=== PATIENT | male | born 1930 | race Caucasian/White ===

== ENCOUNTER 2018-09-21 11:11 | Emergency (ER) | payer MEDICARE, OTHER ==
--- NOTE | 2018-09-21 12:17 | EDM.PDOC ---
ED HPI GENERAL MEDICAL PROBLEM - General Chief Complaint: Genitourinary Problem Stated Complaint: GENERAL Time Seen by Provider: 09/21/18 12:17 Source of Information: Reports: Patient, Old Records, RN, RN Notes Reviewed History Limitations: Reports: No Limitations - History of Present Illness INITIAL COMMENTS - FREE TEXT/NARRATIVE: Pt arrives to ER from assisted living by facility van with report that he has had blood in his antonio catheter bag for 3 or 4 days. Pt states he was given an antibiotic yesterday and has taken 2 doses, but he doesn't recall the name of the medication and his pharmacy is closed today. Pt denies pain, fever, chills, flank or abdominal pain, rectal bleeding or urinary retention. Onset: Gradual Duration: Day(s): (3-4) Location: Reports: Other (antonio catheter/ problem) Quality: Reports: Other (denies pain) Severity: Moderate Improves with: Reports: None Worsens with: Reports: None Associated Symptoms: Reports: No Other Symptoms - Related Data Allergies Allergy/AdvReac Type Severity Reaction Status Date / Time No Known Allergies Allergy Verified 09/21/18 11:53 Home Meds: Home Meds Clopidogrel Bisulfate [Clopidogrel] 75 mg PO DAILY 10/29/14 [History] Pantoprazole [ProTONIX] 40 mg PO DAILY 10/29/14 [History] Ascorbic Acid [Vitamin C] 500 mg PO DAILY 08/15/15 [History] Aspirin [Low Dose Aspirin EC] 81 mg PO DAILY 08/15/15 [History] Bisacodyl [Dulcolax] 10 mg PO BID PRN 08/15/15 [History] Magnesium Hydroxide [Milk of Magnesia] 400 mg PO DAILY PRN 08/15/15 [History] Multivit-Min/FA/Lycopene/Lut [Centrum Silver Tablet] 1 tab PO DAILY 08/15/15 [ History] Sotalol HCl [Betapace] 120 mg PO BID 08/15/15 [History] Tamsulosin [Flomax] 0.4 mg PO BEDTIME 08/15/15 [History] Escitalopram [Lexapro] 20 mg PO DAILY PRN 02/15/16 [History] ALPRAZolam [Xanax] 1 mg PO BID PRN 02/16/16 [History] Finasteride [Proscar] 1 tab PO DAILY 02/16/16 [History] Glucosamine/D3/Boswellia Tomasa [Glucosamine Complex Tablet] 02/16/16 [History] L.acidoph,Paracasei, B.lactis [Probiotic] 02/16/16 [History] Lecithin, Soy [Lecithin] 02/16/16 [History] Lycopene 10 mg PO DAILY 02/16/16 [History] Mometasone Furoate [Nasonex] 2 sprays NS DAILY 02/16/16 [History] Nystatin [Nystatin Crm] 1 applic TOP BID 02/16/16 [History] [place]-3/DHA/Epa/Fish Oil [Fish Oil [place]-3 EC 1,200 mg] 1 cap PO DAILY 02/16/16 [History] Vitamin B Complex 1 tab PO DAILY 02/16/16 [History] Ciprofloxacin [Ciprofloxacin HCl] 250 mg PO BID #14 tablet 02/21/16 [Rx] Past Medical History HEENT History: Reports: Sinusitis, Other (See Below) Other HEENT History: recurrent sinus infections, nasal sinus cyst Cardiovascular History: Reports: Afib, Hypertension, Other (See Below) Other Cardiovascular History: hx atrial cardioversion Respiratory History: Reports: None Gastrointestinal History: Reports: Chronic Constipation, GERD Genitourinary History: Reports: BPH, UTI, Recurrent, Other (See Below) (chronic indwelling antonio catheter) Musculoskeletal History: Reports: Other (See Below) Other Musculoskeletal History: toes deformed sideways bilat, started few years ago. Psychiatric History: Reports: Anxiety - Infectious Disease History Infectious Disease History: Reports: Chicken Pox, Measles - Past Surgical History Respiratory Surgical History: Reports: None Male Surgical History: Reports: Prostate Biopsy, Other (See Below) Social & Family History - Family History Cardiac: Reports: Hypertension, [place] Other Cardiac Family History: father of heart issues Respiratory: Reports: None GI: Reports: None : Reports: None OBGYN: Reports: None Musculoskeletal: Reports: None Neurological: Reports: CVA Other Neurological Family History: brother Psychiatric: Reports: Anxiety Other Psychiatric Family History: mother Endocrine/Metabolic: Reports: Diabetes, type II Other Endocrine/Metabolic Family History: sister is boarderline Hematologic: Reports: None Immunologic: Reports: None Dermatologic: Reports: None Oncologic: Reports: None - Caffeine Use Caffeine Use: Reports: Tea - Living Situation & Occupation Living situation: Reports: Single, Alone, Assisted Living Occupation: Retired ED ROS GENERAL - Review of Systems Review Of Systems: ROS reveals no pertinent complaints other than HPI. ED EXAM, RENAL/ - Physical Exam Exam: See Below Exam Limited By: No Limitations General Appearance: Alert, WD/WN, No Apparent Distress Nose: Normal Inspection Throat/Mouth: Normal Inspection, Normal Voice, No Airway Compromise Head: Atraumatic, Normocephalic Neck: Normal Inspection Respiratory/Chest: No Respiratory Distress, Lungs Clear Cardiovascular: Regular Rate, Rhythm GI/Abdominal: Normal Bowel Sounds, Soft, Non-Tender, No Distention (Male) Exam: Other (chronic indwelling antonio catheter with no leakage, blood urine in antonio bag) Rectal (Males) Exam: Deferred Back Exam: Normal Inspection. No: CVA Tenderness (L), CVA Tenderness (R) Extremities: Normal Inspection Neurological: Alert, Oriented, No Motor/Sensory Deficits Psychiatric: Normal Affect, Normal Mood Skin Exam: Warm, Dry, Intact, Normal Color, No Rash Course - Vital Signs Last Recorded V/S: Last Vital Signs Temp 36.3 C 09/21/18 11:54 Pulse 60 09/21/18 11:54 Resp 16 09/21/18 11:54 BP 98/53 L 09/21/18 11:54 Pulse Ox 98 09/21/18 11:54 - Orders/Labs/Meds Orders: Active Orders 24 hr Category Date Time Status CULTURE URINE [RM] Stat Lab 09/21/18 12:25 Received Labs: Laboratory Tests 09/21/18 Range/Units 12:25 Urine Color Red (YELLOW) Urine Appearance Turbid (CLEAR) Urine pH 7.0 (5.0-9.0) Ur Specific [place] 1.015 (1.005-1.030) Urine Protein >=300 H (NEGATIVE) Urine Glucose (UA) Negative (NEGATIVE) Urine Ketones 15 H (NEGATIVE) Urine Occult Blood Large H (NEGATIVE) Urine Nitrite Positive H (NEGATIVE) Urine Bilirubin Large H (NEGATIVE) Urine Urobilinogen 2.0 H (0.2-1.0) mg/dL Ur Leukocyte Esterase Large H (NEGATIVE) Urine RBC Packed H /HPF Urine WBC Packed H (0-5/HPF) /HPF Ur Epithelial Cells Moderate H (NOT SEEN) /HPF Amorphous Sediment Moderate (NOT SEEN) /HPF Urine Bacteria Few (0-FEW/HPF) /HPF Urine Mucus Few H (NOT SEEN) /LPF Urine Culture: pending - Re-Assessments/Exams Free Text/Narrative Re-Assessment/Exam: 09/21/18 13:04 Pt's past urine cultures have been sensitive to Cipro, but with other multi- drug resistance. Departure - Departure Time of Disposition: 13:05 Disposition: Home, Self-Care 01 Condition: Good Clinical Impression: Gross hematuria UTI (urinary tract infection) due to urinary indwelling Antonio catheter Qualifiers: Indwelling urinary catheter type: indwelling urethral catheter Encounter type: initial encounter Qualified Code(s): T83.511A - Infection and inflammatory reaction due to indwelling urethral catheter, initial encounter; N39.0 - Urinary tract infection, site not specified - Discharge Information *PRESCRIPTION DRUG MONITORING PROGRAM REVIEWED*: No *COPY OF PRESCRIPTION DRUG MONITORING REPORT IN PATIENT [place]: No Instructions: Urinary Tract Infection, Adult, Catheter-Associated Urinary Tract Infection FAQs - MCGRAW, Hematuria, Adult Forms: ED Department Discharge Additional Instructions: Rx: Cipro 500mg *Call back to the ER once you determine the name of the antibiotic you are already taking, and we will then tell you whether to take the Cipro or not. Follow up in clinic in 2 to 3 days for recheck of your urine. - My Orders Last 24 Hours: My Active Orders 09/21/18 12:25 CULTURE URINE [RM] Stat - Assessment/Plan Last 24 Hours: My Active Orders 09/21/18 12:25 CULTURE URINE [RM] Stat
[2018-09-21 12:25] VITALS: BP 98/53
== END 2018-09-21 13:30 | disposition home or self-care (01) ==
LOC: DL.ED 11:11
DX: T83.511A Infection and inflammatory reaction due to indwelling urethral catheter, initial encounter (principal); N39.0 Urinary tract infection, site not specified; I48.91 Unspecified atrial fibrillation; I10 Essential (primary) hypertension; F41.9 Anxiety disorder, unspecified; Z79.899 Other long term (current) drug therapy
CPT/HCPCS: 81001; 87086; 87088; 87186; 99283

== ENCOUNTER 2019-01-20 09:05 | Inpatient (IN) | payer MEDICARE ==
--- NOTE | 2019-01-20 09:10 | EDM.PDOC ---
ED HPI GENERAL MEDICAL PROBLEM - General Chief Complaint: General Stated Complaint: AMBULANCE Time Seen by Provider: 01/20/19 09:05 Source of Information: Reports: Patient, EMS, Old Records, RN, RN Notes Reviewed History Limitations: Reports: No Limitations - History of Present Illness INITIAL COMMENTS - FREE TEXT/NARRATIVE: Pt arrives from assisted living facility by ambulance with report falling at. This is his second fall this in past 2-3 days. Reports hitting his left elbow, and has a small skin but denies any other areas of injury or pain. Nurse from the assisted living facility reports pt has difficulty ambulating due to weakness, and even with walker is very unsteady. Pt has frequent UTI with long chronic Antonio cath. He was started on Macrobid last Sunday01/17/19. Antonio cath. last changed on 01/10/19. Onset: Today Duration: Chronic, Getting Worse, Recurring Location: Reports: Generalized Quality: Reports: Ache Severity: Mild Improves with: Reports: None Worsens with: Reports: None Associated Symptoms: Reports: No Other Symptoms - Related Data Allergies Allergy/AdvReac Type Severity Reaction Status Date / Time No Known Allergies Allergy Verified 09/21/18 11:53 Home Meds: Home Meds ALPRAZolam [Xanax] 1 mg PO BID PRN 09/21/18 [History] Albuterol Sulfate [Proair Hfa] 2 puff INH DAILY 09/21/18 [History] Ascorbic Acid [C-1000] 500 mg PO DAILY 09/21/18 [History] Aspirin 81 mg PO DAILY 09/21/18 [History] Bisacodyl 5 mg PO DAILY 09/21/18 [History] Clopidogrel [Plavix] 75 mg PO DAILY 09/21/18 [History] Finasteride 5 mg PO DAILY 09/21/18 [History] Fish Oil/[place]-3 Fatty Acids [Fish Oil] 1,000 mg PO DAILY 09/21/18 [History] Gabapentin [Neurontin] 100 mg PO BEDTIME 09/21/18 [History] Gluc HCl/Csa/Saima Hy/Hyalur Ac [Glucosamine Chondroitin] 1 cap PO DAILY [History] Lycopene 10 mg PO DAILY 09/21/18 [History] Magnesium Hydroxide [Milk of Magnesia] 400 mg PO DAILY PRN 09/21/18 [History] Multivitamin [Multivitamins] 1 cap PO DAILY 09/21/18 [History] Pantoprazole Sodium [Protonix] 40 mg PO DAILY 09/21/18 [History] Tamsulosin [Flomax] 0.4 mg PO DAILY 09/21/18 [History] Vitamin B Complex 1 cap PO DAILY 09/21/18 [History] Past Medical History HEENT History: Reports: Sinusitis, Other (See Below) Other HEENT History: recurrent sinus infections, nasal sinus cyst Cardiovascular History: Reports: Afib, Hypertension, Other (See Below) Other Cardiovascular History: hx atrial cardioversion Respiratory History: Reports: None Gastrointestinal History: Reports: Chronic Constipation, GERD Genitourinary History: Reports: BPH, UTI, Recurrent, Other (See Below) (chronic indwelling antonio catheter) Musculoskeletal History: Reports: Other (See Below) Other Musculoskeletal History: toes deformed sideways bilat, started few years ago. Psychiatric History: Reports: Anxiety - Infectious Disease History Infectious Disease History: Reports: Chicken Pox, Measles - Past Surgical History Respiratory Surgical History: Reports: None Male Surgical History: Reports: Prostate Biopsy, Other (See Below) Social & Family History - Family History Family Medical History: Noncontributory Cardiac: Reports: Hypertension, [place] Other Cardiac Family History: father of heart issues Respiratory: Reports: None GI: Reports: None : Reports: None OBGYN: Reports: None Musculoskeletal: Reports: None Neurological: Reports: CVA Other Neurological Family History: brother Psychiatric: Reports: Anxiety Other Psychiatric Family History: mother Endocrine/Metabolic: Reports: Diabetes, type II Other Endocrine/Metabolic Family History: sister is boarderline Hematologic: Reports: None Immunologic: Reports: None Dermatologic: Reports: None Oncologic: Reports: None - Caffeine Use Caffeine Use: Reports: Tea - Living Situation & Occupation Living situation: Reports: Single, Alone, Assisted Living Occupation: Retired ED ROS GENERAL - Review of Systems Review Of Systems: ROS reveals no pertinent complaints other than HPI. ED EXAM, GENERAL - Physical Exam Exam: See Below Exam Limited By: No Limitations General Appearance: Alert, No Apparent Distress, Other (Frail elderly male) Eye Exam: Bilateral Eye: Normal Inspection Nose: Normal Inspection Throat/Mouth: Normal Inspection, Normal Voice, No Airway Compromise Head: Atraumatic, Normocephalic Neck: Normal Inspection, Supple, Non-Tender, Full Range of Motion Respiratory/Chest: No Respiratory Distress, No Accessory Muscle Use, Chest Non- Tender, Decreased Breath Sounds. No: Crackles, Rales, Rhonchi, Wheezing, Stridor Cardiovascular: Irregularly Irregular GI/Abdominal: Normal Bowel Sounds, Soft, Non-Tender, No Distention Back Exam: Normal Inspection Extremities: Normal Range of Motion, Normal Capillary Refill, Other (Small superficial skin tear to left elbow, with full ROM, no deformity.) Neurological: Alert, Oriented (to person and place), No Motor/Sensory Deficits, Other (Generalized weakness) Psychiatric: Depressed Mood, Flat Affect Skin Exam: Warm, Dry EKG INTERPRETATION EKG Date: 01/20/19 Time: 09:22 Rhythm: A-Fib Rate (Beats/Min): 54 Lejunior: Normal P-Wave: Absent QRS: Other (LAFB,) ST-T: Normal QT: Normal Comparison: No Change Course - Vital Signs Last Recorded V/S: Last Vital Signs Temp 98.3 F 01/20/19 09:05 Pulse 75 01/20/19 09:05 Resp 16 01/20/19 09:05 BP 139/64 01/20/19 09:05 Pulse Ox 97 01/20/19 09:05 - Orders/Labs/Meds Orders: Active Orders 24 hr Category Date Time Status Blood Glucose Check, Bedside [RC] ONETIME Care 01/20/19 09:11 Active EKG 12 Lead [EKG Documentation Completion] [RC] STAT Care 01/20/19 09:10 Active Peripheral IV Care [RC] . DIRECTED Care 01/20/19 09:11 Active CULTURE URINE [RM] Stat Lab 01/20/19 09:16 Received Levofloxacin/Dextrose 5%-Water [Levaquin in D5W 500 MG/ Med 01/20/19 09:57 Ordered 100 ML] 500 mg Premix Bag 1 bag IV ONETIME Sodium Chloride 0.9% [Saline Flush] Med 01/20/19 09:10 Active 10 ml FLUSH ASDIRECTED PRN Peripheral IV Insertion Adult [OM.PC] Stat Oth 01/20/19 09:10 Ordered Medication Orders Levofloxacin/Dextrose 500 mg/ (Premix) 100 mls @ 100 mls/hr IV ONETIME ONE Stop: 01/20/19 10:56 Sodium Chloride (Saline Flush) 10 ml FLUSH ASDIRECTED PRN PRN Reason: Keep Vein Open Labs: Laboratory Tests 01/20/19 01/20/19 01/20/19 Range/Units 09:16 09:20 09:20 WBC 7.5 (5.0-10.0) 10^3/uL RBC 3.26 L (4.6-6.2) 10^6/uL Hgb 10.9 L (14.0-18.0) g/dL Hct 32.7 L (40.0-54.0) % MCV 100.3 H (80-100) fL MCH 33.4 (27.0-34.0) pg MCHC 33.3 (33.0-35.0) g/dL Plt Count 229 (150-450) 10^3/uL Neut % (Auto) 70.2 (42.2-75.2) % Lymph % (Auto) 18.3 L (20.5-50.1) % [place] % (Auto) 8.7 H (2-8) % Eos % (Auto) 2.5 (1.0-3.0) % Baso % (Auto) 0.3 (0.0-1.0) % Sodium 133 L (135-145) mmol/L Potassium 4.2 (3.6-5.0) mmol/L Chloride 96 L (101-111) mmol/L Carbon Dioxide 28.0 (21.0-31.0) mmol/L Anion Gap 13.2 BUN 17 (7-18) mg/dL Creatinine 0.6 (0.6-1.3) mg/dL Est Cr Clr Drug Dosing TNP Estimated GFR (MDRD) > 60 BUN/Creatinine Ratio 28.33 Glucose 97 (74-105) mg/dL POC Glucose (83-110) mg/dl Calcium 8.8 (8.4-10.2) mg/dl Total Bilirubin 1.1 H (0.2-1.0) mg/dL AST 29 (10-42) IU/L ALT 26 (10-60) IU/L Alkaline Phosphatase 158 H (42-121) IU/L Total Protein 7.6 (6.7-8.2) g/dl Albumin 3.5 (3.2-5.5) g/dl Globulin 4.1 Albumin/Globulin Ratio 0.85 Urine Color Red (YELLOW) Urine Appearance Cloudy (CLEAR) Urine pH 8.5 (5.0-9.0) Ur Specific [place] 1.015 (1.005-1.030) Urine Protein 30 H (NEGATIVE) Urine Glucose (UA) Negative (NEGATIVE) Urine Ketones Negative (NEGATIVE) Urine Occult Blood Large H (NEGATIVE) Urine Nitrite Positive H (NEGATIVE) Urine Bilirubin Small H (NEGATIVE) Urine Urobilinogen 2.0 H (0.2-1.0) mg/dL Ur Leukocyte Esterase Large H (NEGATIVE) Urine RBC >100 H /HPF Urine WBC 10-20 H (0-5/HPF) /HPF Ur Epithelial Cells Rare (NOT SEEN) /HPF Amorphous Sediment Few (NOT SEEN) /HPF Urine Bacteria Moderate H (0-FEW/HPF) /HPF 01/20/19 Range/Units 09:21 WBC (5.0-10.0) 10^3/uL RBC (4.6-6.2) 10^6/uL Hgb (14.0-18.0) g/dL Hct (40.0-54.0) % MCV (80-100) fL MCH (27.0-34.0) pg MCHC (33.0-35.0) g/dL Plt Count (150-450) 10^3/uL Neut % (Auto) (42.2-75.2) % Lymph % (Auto) (20.5-50.1) % [place] % (Auto) (2-8) % Eos % (Auto) (1.0-3.0) % Baso % (Auto) (0.0-1.0) % Sodium (135-145) mmol/L Potassium (3.6-5.0) mmol/L Chloride (101-111) mmol/L Carbon Dioxide (21.0-31.0) mmol/L Anion Gap BUN (7-18) mg/dL Creatinine (0.6-1.3) mg/dL Est Cr Clr Drug Dosing Estimated GFR (MDRD) BUN/Creatinine Ratio Glucose (74-105) mg/dL POC Glucose 95 (83-110) mg/dl Calcium (8.4-10.2) mg/dl Total Bilirubin (0.2-1.0) mg/dL AST (10-42) IU/L ALT (10-60) IU/L Alkaline Phosphatase (42-121) IU/L Total Protein (6.7-8.2) g/dl Albumin (3.2-5.5) g/dl Globulin Albumin/Globulin Ratio Urine Color (YELLOW) Urine Appearance (CLEAR) Urine pH (5.0-9.0) Ur Specific [place] (1.005-1.030) Urine Protein (NEGATIVE) Urine Glucose (UA) (NEGATIVE) Urine Ketones (NEGATIVE) Urine Occult Blood (NEGATIVE) Urine Nitrite (NEGATIVE) Urine Bilirubin (NEGATIVE) Urine Urobilinogen (0.2-1.0) mg/dL Ur Leukocyte Esterase (NEGATIVE) Urine RBC /HPF Urine WBC (0-5/HPF) /HPF Ur Epithelial Cells (NOT SEEN) /HPF Amorphous Sediment (NOT SEEN) /HPF Urine Bacteria (0-FEW/HPF) /HPF Meds: Medications Generic Name Dose Route Start Last Admin Trade Name Freq PRN Reason Stop Dose Admin Levofloxacin/Dextrose 500 mg/ 100 mls @ 100 mls/hr 01/20/19 09:57 Premix IV 01/20/19 10:56 ONETIME ONE Sodium Chloride 10 ml 01/20/19 09:10 Saline Flush FLUSH ASDIRECTED PRN Keep Vein Open - Radiology Interpretation Free Text/Narrative:: [facility] Final Radiology Report Call: [phone] assistance Online chat: [email or web address] Name: MIGUEL MURGUIA Age: 89Years M Date: 01/20/2019 SSN: -- : [id number] Study: XR CHEST 1 VIEW FRONTAL Requesting Physician: DUKE OBRIEN Images: 1 Addl Studies: Provided Clinical History: Contrast: Contrast Medium: Contrast Amount: Contrast Method: CONFIDENTIALITY STATEMENT This report is intended only for use by the referring physician, and only in accordance with law. If you received this in error, call [phone]. Page 1 of 1 PROCEDURE INFORMATION: Exam: XR Chest, 1 View Exam date and time: 01/20/2019 9:38 AM Clinical history: 89 years old, male; Other: Shortness of breath, ground level fall TECHNIQUE: Imaging protocol: XR of the chest Views: 1 view. COMPARISON: CR Chest 2V 08/20/2015 3:19 PM FINDINGS: Lungs: Unremarkable. No consolidation. Pleural space: Unremarkable. No pleural effusion. No pneumothorax. Heart/Mediastinum: The heart is enlarged. Bones/joints: Unremarkable. IMPRESSION: No acute findings. Thank you for allowing us to participate in the care of your patient. Dictated and Authenticated by: Krishna White MD 01/20/2019 9:51 AM Central Time ([place] & [place]) Departure - Departure Time of Disposition: 10:10 (admitted to Dr. Salas) Disposition: Admitted As Inpatient 68 Condition: Fair Clinical Impression: Generalized weakness, Fall from ground level, Frequent falls UTI (urinary tract infection) due to urinary indwelling Antonio catheter Qualifiers: Indwelling urinary catheter type: indwelling urethral catheter Encounter type: initial encounter Qualified Code(s): T83.511A - Infection and inflammatory reaction due to indwelling urethral catheter, initial encounter; N39.0 - Urinary tract infection, site not specified Skin tear of elbow without complication Qualifiers: Encounter type: initial encounter Laterality: left Qualified Code(s): S51.012A - Laceration without foreign body of left elbow, initial encounter - Discharge Information *PRESCRIPTION DRUG MONITORING PROGRAM REVIEWED*: No *COPY OF PRESCRIPTION DRUG MONITORING REPORT IN PATIENT [place]: No Forms: ED Department Discharge - My Orders Last 24 Hours: My Active Orders 01/20/19 09:10 EKG 12 Lead [EKG Documentation Completion] [RC] STAT Sodium Chloride 0.9% [Saline Flush] 10 ml FLUSH ASDIRECTED PRN Peripheral IV Insertion Adult [OM.PC] Stat 01/20/19 09:11 Blood Glucose Check, Bedside [RC] ONETIME Peripheral IV Care [RC] . DIRECTED 01/20/19 09:16 CULTURE URINE [RM] Stat 01/20/19 09:57 Levofloxacin/Dextrose 5%-Water [Levaquin in D5W 500 MG/100 ML] 500 mg Premix Bag 1 bag IV ONETIME - Assessment/Plan Last 24 Hours: My Active Orders 01/20/19 09:10 EKG 12 Lead [EKG Documentation Completion] [RC] STAT Sodium Chloride 0.9% [Saline Flush] 10 ml FLUSH ASDIRECTED PRN Peripheral IV Insertion Adult [OM.PC] Stat 01/20/19 09:11 Blood Glucose Check, Bedside [RC] ONETIME Peripheral IV Care [RC] . DIRECTED 01/20/19 09:16 CULTURE URINE [RM] Stat 01/20/19 09:57 Levofloxacin/Dextrose 5%-Water [Levaquin in D5W 500 MG/100 ML] 500 mg Premix Bag 1 bag IV ONETIME
[2019-01-20 09:45] LABS: ANION GAP 13.2; CHLORIDE,CL 96 mmol/L (101-111); SODIUM,NA 133 mmol/L (135-145)
[2019-01-20] MEDS ORDERED: Levofloxacin/Dextrose 5%-Water 500 MG in Premix Bag 1 BAG IV ONE (09:57)
[2019-01-20] MEDS: Sodium Chloride 0.9% 10 ML Syringe FLUSH PRN (10:19)
[2019-01-20] MEDS ORDERED: Polyethylene Glycol 3350 Powder 17 GM Packet PO PRN (12:07)
[2019-01-20] MEDS ORDERED: Docusate Sodium 100 MG Cap PO PRN (12:07)
[2019-01-20] MEDS ORDERED: Magnesium Hydroxide 400 MG/5 ML Susp 30 ML Cup PO PRN ×2 (12:07→12:11)
[2019-01-20] MEDS ORDERED: Ondansetron 4 MG Tab.DIS PO PRN (12:07)
[2019-01-20] MEDS ORDERED: Bisacodyl 5 MG Tab PO PRN (12:11)
[2019-01-20] MEDS ORDERED: ALPRAZolam 0.5 MG Tab PO PRN (12:11)
[2019-01-20] MEDS ORDERED: Albuterol 6.7 GM Inhaler INH PRN (12:11)
--- NOTE | 2019-01-20 13:14 | HP ---
CHIEF COMPLAINT: Fall at the assisted living facility. HISTORY OF PRESENTING ILLNESS: Mr. Tavo Lopez is an 89-year-old male with a medical history significant for chronic indwelling Matias catheter secondary to benign prostatic hypertrophy, history of gastric reflux disease, history of anxiety, and atrial fibrillation, presented to the ER after having a fall at the assisted living facility. At this time, the patient says that around 7 a.m. was getting ready to cook and then he had a fall. He complains that his legs gave away and fell down on the hardwood floor. He fell on his left side and hit his left elbow. During the fall, he denies any hitting of the head. Denies any loss of consciousness. He was unable to get up by his own, so he alarmed the [facility]. The staff at assisted living facility came and helped him up. Two people could not get him up, so they needed more help. At this time, the patient denies any complaints of chest pain. No shortness of breath. No abdominal pain. No complaints of nausea or vomiting in the last few days. No complaints of diarrhea in the last few days. No complaints of fevers or chills in the last few days. He denies any complaints of pelvic pain. No knee pain. No ankle pain at this time. The patient denied any history of chest pains on exertion. No history of dyspnea on exertion. He usually uses a walker to ambulate around. He denies any hematemesis, hematochezia, or melenic stools. Normal bowel and bladder habits otherwise. REVIEW OF SYSTEMS: A complete review of system including skin, ear, nose, and throat, cardiovascular system, respiratory system, gastrointestinal system, genitourinary system, hematology, oncology, neurology, allergy, immunology, constitutional were all evaluated and were negative except for the above-said notes. PAST MEDICAL HISTORY: Significant for: 1. Gastroesophageal reflux disease. 2. Benign prostatic hypertrophy. 3. Chronic indwelling Matias catheter. 4. Recurrent urinary tract infection. 5. Recurrent sinus infection. 6. Atrial fibrillation. 7. Anxiety. PAST SURGICAL HISTORY: History of cardioversion and appendicectomy. FAMILY HISTORY: Significant for cerebrovascular accident in his brother. SOCIAL HISTORY: The patient denies any history of smoking tobacco. No history of alcohol intake. ALLERGIES: No known drug allergies. HOME MEDICATIONS: 1. Flomax 0.4 mg daily. 2. Protonix 40 mg daily. 3. Multivitamin 1 tablet daily. 4. Magnesium hydroxide 400 mg daily as needed. 5. Glucosamine 1 capsule daily. 6. Neurontin 100 mg at bedtime. 7. Fish oil 1000 mg daily. 8. Finasteride 5 mg daily. 9. Plavix 75 mg daily. 10.Bisacodyl 5 mg daily. 11.Aspirin 81 mg daily. 12.Ascorbic acid 500 mg daily. 13.Xanax 1 mg twice a day as needed. PHYSICAL EXAMINATION: Vital Signs: Temperature of 98.3, pulse of 75, blood pressure of 139/64, respiratory rate 16, and saturating at 97% on room air. General Appearance: Patient is well oriented to time, place, and person. Follows commands spontaneously. Cardiovascular System: S1, S2 heard with normal intensity. Regular heart rate. Respiratory System: Clear to auscultation bilaterally. Mild crepitations at the bases, mostly on the left side. No wheeze. Abdomen: Soft. Bowel sounds positive. Nontender. No rigidity. Extremities: No edema, bilateral lower extremities. Noted to have hammertoes and deviated toes on bilateral foot. Calluses noted on bilateral foot base of the second toe. Neurologic: No gross focal neurological deficit. LABORATORY DATA: WBC 7.5, hemoglobin 10.9, hematocrit 32.7, platelet count 229. Sodium 133, potassium 4.2, chloride 96, bicarb 28, BUN 17, creatinine 0.6, glucose 97, total bilirubin 1.1, AST 29, ALT 26. Urinalysis positive for nitrites, large leukocytes, greater than 100 rbc's, 10 to 20 wbc's, rare epithelial cells, moderate urine bacteria. ASSESSMENT: 1. Urinary tract infection with history of Matias catheter in place. 2. Gastroesophageal reflux disease. 3. Frequent falls. 4. Generalized debility. 5. Anxiety. PLAN: 1. Urinary tract infection, this is most probably from his indwelling Matias catheter. He changes his Matias catheter once a month. We will try to change the Matias catheter now. Unsure if this is a benign process versus an active infection. He was seen in the clinic a few days back and was prescribed oral Macrobid, unsure if this is resulting in not having any leukocytosis. We will obtain urine cultures and start him on IV ceftriaxone. On his previous urine cultures, he was noted to have Klebsiella and Enterococcus, both sensitive to ceftriaxone. We will start him on IV ceftriaxone for now and we will closely follow the culture reports. 2. Atrial fibrillation, rate controlled. He has been on sotalol, continue the same. He has been on aspirin and Plavix, not on any active anticoagulation. With his frequent falls, we will hold off on any Coumadin or any new or oral anticoagulant agents. Continue with aspirin and Plavix for now. Denied any history of stroke in the past. We will have him on telemetry unit. 3. Gastroesophageal reflux disease. Continue with proton pump inhibitor. 4. DVT prophylaxis. We will have 1 Lovenox for DVT prophylaxis. 5. Frequent falls with generalized debility. We will have Physical Therapy and Occupational Therapy evaluate and treat the patient. The patient has an injury to the left elbow. Given his fall, we will x-ray his left elbow to make sure there is no fracture. On physical examination, there is no evidence of knee or ankle or pelvic fracture at this time. Discussed with family members at bedside. Discussed with Dr. Latham, ER physician, regarding the plan of care. Reviewed the labs and medications. Reviewed the old charts. [facility] /[id number]
--- NOTE | 2019-01-20 13:29 | CR ---
EXAMINATION: Elbow 2V Lt SEX: Male AGE: 89 years CLINICAL HISTORY: 89-year-old male experiencing left elbow pain (fall). INTERPRETATION: 1. Tiny bone spur at the tendon insertion olecranon process posteriorly os calcis. 2. No sign of acute left elbow fracture or dislocation. 3. No foreign bodies.
[2019-01-20] MEDS: Tamsulosin 0.4 MG Cap.ER PO SCH (14:51)
[2019-01-20] MEDS: Aspirin 81 MG Tab.Chew PO SCH (14:51)
[2019-01-20] MEDS: Clopidogrel 75 MG Tab PO SCH (14:51)
[2019-01-20] MEDS: Sotalol 80 MG Tab PO SCH ×2 (14:52→21:56)
[2019-01-20] MEDS: Pantoprazole 40 MG Tab.CR PO SCH (14:54)
[2019-01-20] MEDS: Acetaminophen 325 MG Tab PO PRN ×2 (15:41→23:22)
[2019-01-21] MEDS: Pantoprazole 40 MG Tab.CR PO SCH (06:10)
[2019-01-21 06:27] LABS: ANION GAP 11.8; CHLORIDE,CL 97 mmol/L (101-111); SODIUM,NA 133 mmol/L (135-145)
[2019-01-21] MEDS ORDERED: FISH OIL PO SCH (09:00)
[2019-01-21] MEDS ORDERED: FATTY ACIDS PO SCH (09:00)
[2019-01-21] MEDS ORDERED: OMEGA PO SCH (09:00)
[2019-01-21] MEDS: Tamsulosin 0.4 MG Cap.ER PO SCH (09:41)
[2019-01-21] MEDS: Clopidogrel 75 MG Tab PO SCH (09:41)
[2019-01-21] MEDS: Multivitamins,Therapeutic Tab PO SCH (09:41)
[2019-01-21] MEDS: Vitamin B Complex Cap PO SCH (09:41)
[2019-01-21] MEDS: Aspirin 81 MG Tab.Chew PO SCH (09:41)
[2019-01-21] MEDS: Sotalol 80 MG Tab PO SCH ×2 (09:42→20:59)
[2019-01-21] MEDS: Sodium Chloride 0.9% 10 ML Syringe FLUSH PRN ×3 (09:43→16:12)
[2019-01-21] MEDS: Enoxaparin 40 MG/0.4 ML Syringe SUBCUT SCH (09:53)
[2019-01-21] MEDS ORDERED: Menthol/Methyl Salicylate 85 GM Tube TOP PRN (12:45)
[2019-01-21] MEDS ORDERED: guaiFENesin 100 MG/5 ML Soln 5 ML UD Cup PO PRN (12:45)
--- NOTE | 2019-01-21 14:26 | PN ---
DATE: 01/21/2019 SUBJECTIVE: Mr. Jacob Vo is an 89-year-old male with a medical history significant for recurrent urinary tract infection secondary to chronic indwelling Matias catheter, history of benign prostatic hypertrophy, gastroesophageal reflux disease, anxiety, history of atrial fibrillation, admitted with having a fall at the assisted living facility, noted to have possible UTI. For the last 24 hours, the patient is closely monitored on the telemetry unit. While on telemetry, the patient noted to have heart rate dipping down to 30s and 40s, but mostly he is sustaining at 50s and 60s. He denies any complaints of chest pain. No shortness of breath. No dizziness. Denies any abdominal pain. No nausea. No vomiting. He is also noted to have cough with taking fluids, so he had a swallow evaluation done. REVIEW OF SYSTEMS: Cardiovascular, respiratory, gastrointestinal, neurology, and constitutional were all evaluated. PHYSICAL EXAMINATION: Vital Signs: Temperature of 98, pulse of 66, blood pressure 128/71, respiratory rate of 20, saturating at 96%. General Appearance: The patient is well oriented to time, place, and person. Follows commands spontaneously. Cardiovascular System: S1 and S2 heard with normal intensity. No gallops. Respiratory System: Clear to auscultation bilaterally. No wheeze. No crepitations. Abdomen: Soft. Bowel sounds positive. Nontender. No rigidity. Extremities: No edema in bilateral lower extremities. MEDICATIONS: Reviewed. Continue with Tylenol 650 every 4 hours as needed for pain, Xanax 1 mg twice a day as needed for anxiety, aspirin 81 mg daily, Plavix 75 mg daily, Lovenox 40 mg subcutaneous daily, Flomax 0.4 mg daily, sotalol 120 mg twice a day, Protonix 40 mg daily. Start him on ceftriaxone 1 g IV daily. LABORATORY DATA: WBC 8, hemoglobin 10.3, hematocrit 30.6, platelet count 241. Sodium 133, potassium 3.8, chloride 97, bicarb 28, BUN 10, creatinine 0.5. MICROBIOLOGY: Urine culture still pending, shows greater than 100,000 colony- forming gram-negative marco. ID to follow. ASSESSMENT: 1. Recurrent urinary tract infection secondary to chronic indwelling Matias catheter. 2. Atrial fibrillation, on sotalol. 3. Episodes of bradycardia. 4. History of frequent falls. 5. Generalized debility. 6. Anxiety. PLAN: 1. Urinary tract infection. The patient has a chronic indwelling Matias catheter. He does not have any leukocytosis. He remains afebrile, but given the falls, start him on empirical IV antibiotics. His urine culture is growing greater than 100,000 gram-negative rods. We will follow with ID and susceptibility. He had history of Klebsiella and Enterobacter in the past. We will have him on IV ceftriaxone and closely follow with ID and susceptibility and titrate antibiotics as needed. 2. Episodes of bradycardia. The patient is noted to have heart rate dropping down to 30s and 40s, but mostly he is sustaining at 50 to 60. We will see how his heart rate behaves on ambulation. The patient remains asymptomatic. He denies any dizziness. He has history of atrial fibrillation. At times, his heart rate is up to 100. If he continues to have lower heart rate, then one might consider decreasing the dose on sotalol. 3. Generalized debility. The patient will be evaluated by Physical Therapy and Occupational Therapy. [facility] from [facility]. He would need to be placed in a [facility] upon discharge. 4. DVT prophylaxis. Continue with Lovenox for DVT prophylaxis. [facility] /[id number]
[2019-01-21] MEDS: cefTRIAXone 1 GM in Sodium Chloride 0.9% 50 ML IV SCH (15:13)
[2019-01-22] MEDS: Pantoprazole 40 MG Tab.CR PO SCH (06:05)
[2019-01-22] MEDS: Vitamin B Complex Cap PO SCH (09:01)
[2019-01-22] MEDS: Tamsulosin 0.4 MG Cap.ER PO SCH (09:01)
[2019-01-22] MEDS: Aspirin 81 MG Tab.Chew PO SCH (09:01)
[2019-01-22] MEDS: Multivitamins,Therapeutic Tab PO SCH (09:01)
[2019-01-22] MEDS: Clopidogrel 75 MG Tab PO SCH (09:01)
[2019-01-22] MEDS: Sotalol 80 MG Tab PO SCH ×2 (09:01→20:53)
[2019-01-22] MEDS: Enoxaparin 40 MG/0.4 ML Syringe SUBCUT SCH (09:01)
[2019-01-22] MEDS: Acetaminophen 325 MG Tab PO PRN (11:06)
--- NOTE | 2019-01-22 12:41 | PN ---
DATE: 01/22/2019 SUBJECTIVE: The patient is an 89-year-old gentleman with history of atrial fibrillation and history of recurrent urinary tract infection and bladder outlet obstruction, on Matias catheter, admitted after a fall. The patient also has urinary tract infection and this is growing enterobacter which is susceptible to ceftriaxone. The patient is doing well. He denies any significant ongoing complaints. No fever, chills, chest pain, shortness of breath, lightheadedness, or any other complaints. OBJECTIVE: Vital Signs: Blood pressure is 142/73, pulse of 58, respirations of 20, temperature of 97.8. Heart: Regular rate and rhythm. Normal S1 and S2. No gallops. No rubs. Lungs: Equal bilaterally. No crackles. No wheezing. Abdomen: Soft, nontender. Bowel sounds positive. Extremities: Negative for any significant pedal edema. No calf tenderness. PLAN: We will continue with his present management, and I am going to discontinue the telemetry as his heart rate has been stable. [facility] /[id number]
[2019-01-22] MEDS: cefTRIAXone 1 GM in Sodium Chloride 0.9% 50 ML IV SCH (13:54)
[2019-01-23] MEDS: Pantoprazole 40 MG Tab.CR PO SCH (05:36)
[2019-01-23] MEDS: Vitamin B Complex Cap PO SCH (09:19)
[2019-01-23] MEDS: Sotalol 80 MG Tab PO SCH ×2 (09:19→21:31)
[2019-01-23] MEDS: Multivitamins,Therapeutic Tab PO SCH (09:19)
[2019-01-23] MEDS: Tamsulosin 0.4 MG Cap.ER PO SCH (09:19)
[2019-01-23] MEDS: Sodium Chloride 0.9% 10 ML Syringe FLUSH PRN (09:21)
[2019-01-23] MEDS: amLODIPine 5 MG Tab PO SCH (10:37)
--- NOTE | 2019-01-23 11:38 | PN ---
DATE: 01/23/2019 SUBJECTIVE: The patient last night started having bleeding from the site where he had a tooth pulled about 2 weeks ago. The patient had difficulty controlling it, and we did put in some pressure dressing early this morning and it seems to have helped. We did hold his Lovenox and Plavix and aspirin at the moment. This morning, the patient is feeling a little bit better. There is still some mild oozing, but much better as compared to early this morning. The patient denies though any chest pain, palpitation, headache, lightheadedness, shortness of breath, or any other complaints. LABORATORY DATA: Lab workup done this morning. CBC: WBC 7.7, hemoglobin is 11.2, hematocrit is 33.4, platelets are 241. Pro time is 11, INR is 1.1, PTT is 32.3. OBJECTIVE: Vital Signs: Blood pressure is 158/84, pulse of 73, respirations 20, temperature of 98.7. Heart: Regular rate and rhythm. Normal S1 and S2. No gallops. No rubs. Lungs: Equal bilaterally. No crackles. No wheezing. Abdomen: Soft, nontender. Bowel sounds positive. Extremities: Negative for any pedal edema. No calf tenderness. PLAN: We will continue to hold his aspirin and Plavix as well as the Lovenox, and we will continue with a pressure dressing on the site where he had a tooth pulled, and I am going to start him on amlodipine because of his blood pressure. Otherwise, we will continue the rest of his management, and if he continues to do well, we might be able to discharge him back to the custodial. [facility] /[id number]
[2019-01-23] MEDS: Levofloxacin 500 MG Tab PO SCH (12:13)
[2019-01-23] MEDS: Acetaminophen 325 MG Tab PO PRN (21:33)
[2019-01-24] MEDS: Pantoprazole 40 MG Tab.CR PO SCH (05:58)
[2019-01-24 08:23] VITALS: BP 154/81; PULSE 68
[2019-01-24] MEDS: Sotalol 80 MG Tab PO SCH (09:20)
[2019-01-24] MEDS: amLODIPine 5 MG Tab PO SCH (09:21)
[2019-01-24] MEDS: Tamsulosin 0.4 MG Cap.ER PO SCH (09:21)
[2019-01-24] MEDS: Multivitamins,Therapeutic Tab PO SCH (09:22)
[2019-01-24] MEDS: Vitamin B Complex Cap PO SCH (09:22)
[2019-01-24] MEDS: Levofloxacin 500 MG Tab PO SCH (10:31)
--- NOTE | 2019-01-24 11:30 | PN ---
DATE: 01/24/2019 SUBJECTIVE: The patient has had a good night's sleep and so far has not had any problems with oozing from the gum. Official report of his urine culture showed Pseudomonas aeruginosa, Enterococcus faecalis, and Klebsiella pneumoniae and these are all susceptible to levofloxacin. The patient's antibiotic was changed yesterday to oral levofloxacin. The patient this morning denies any ongoing complaints. No chest pain, shortness of breath, abdominal pain, or any other significant complaints. OBJECTIVE: Vital Signs: Blood pressure is 154/81, pulse of 68, respirations of 18, temperature of 98. Heart: Irregular. Ventricular response within normal limits. Lungs: Equal bilaterally. No crackles. No wheezing. Abdomen: Soft, nontender. Bowel sounds positive. Extremities: Negative for any pedal edema. No calf tenderness. PLAN: We will discharge the patient home today, to the [facility]. I am going to restart his aspirin and Plavix as the patient has not had any problems with bleeding from the gum. I will see him for followup in 7 to 10 days with a recheck of urinalysis. [facility] /[id number]
--- NOTE | 2019-01-24 12:33 | DISCH ---
FINAL DIAGNOSES: 1. Urinary tract infection with Pseudomonas aeruginosa, enterococcus faecalis, and Klebsiella pneumoniae. 2. Obstructive uropathy with indwelling Matias catheterization. 3. Atrial fibrillation for gastroesophageal reflux. 4. Hypertension. 5. Gum bleeding from previous tooth extraction. BRIEF HISTORY OF PRESENT ILLNESS: The patient is an 89-year-old gentleman with past medical history of BPH and obstructive uropathy, on indwelling Matias catheterization, and history of recurrent urinary tract infection, atrial fibrillation, admitted after having a fall and was noted again to have urinary tract infection. He was empirically started on ceftriaxone IV and the patient's urine was sent for culture and patient's indwelling Matias catheter was also changed during the hospitalization. During his hospital stay, his blood pressure was noted to be elevated, so amlodipine was added to his regimen. Hospital course was also complicated by bleeding on his gum where he had a tooth extracted, and because of this, his Lovenox, Plavix, and aspirin were held and packing of the gum was done, which resolved the problem. The rest of the hospital course was uncomplicated, and he was subsequently discharged to the sn[facility]. CONDITION ON DISCHARGE: Improved. DISCHARGE MEDICATION: 1. Levofloxacin 500 mg daily for the next 7 days. 2. We will continue with the rest of his home medication and continue with amlodipine. 3. We will also going to restart his aspirin and Plavix because of his atrial fibrillation. FOLLOWUP: Follow up with me in 7 to 10 days at the clinic with a repeat urinalysis. [facility] /[id number]
== END 2019-01-24 10:45 | DRG 699 ==
LOC: DL.ED 09:05 → DL.MS 10:37 → UNDOADMOB 10:37 → OBSVTOIN 10:37 → INTOOBSV 10:37 → DL.ED 10:45 → DL.MS 12:07 → OBSVTOIN 12:07
PROVIDERS: ADMIT Internal Medicine; ATTEND Internal Medicine
DX: T83.511A Infection and inflammatory reaction due to indwelling urethral catheter, initial encounter (principal); K91.840 Postprocedural hemorrhage of a digestive system organ or structure following a digestive system procedure; S50.902A Unspecified superficial injury of left elbow, initial encounter; R53.1 Weakness; N13.8 Other obstructive and reflux uropathy; N39.0 Urinary tract infection, site not specified; B96.5 Pseudomonas (aeruginosa) (mallei) (pseudomallei) as the cause of diseases classified elsewhere; B95.2 Enterococcus as the cause of diseases classified elsewhere; Z79.899 Other long term (current) drug therapy; Z91.81 History of falling; W18.30XA Fall on same level, unspecified, initial encounter; I48.91 Unspecified atrial fibrillation; N40.1 Benign prostatic hyperplasia with lower urinary tract symptoms; R29.6 Repeated falls; K59.09 Other constipation; S51.012A Laceration without foreign body of left elbow, initial encounter; R00.1 Bradycardia, unspecified; K21.9 Gastro-esophageal reflux disease without esophagitis; I10 Essential (primary) hypertension; F41.9 Anxiety disorder, unspecified; Z90.49 Acquired absence of other specified parts of digestive tract; Z79.82 Long term (current) use of aspirin; Z79.02 Long term (current) use of antithrombotics/antiplatelets; Z23 Encounter for immunization; W01.10XA Fall on same level from slipping, tripping and stumbling with subsequent striking against unspecified object, initial encounter; Y84.6 Urinary catheterization as the cause of abnormal reaction of the patient, or of later complication, without mention of misadventure at the time of the procedure
CPT/HCPCS: 36415; 71045; 80053; 81001; 82962; 85025; 87086; 87088 ×3; 87186 ×3; 93005; 96365; 99285; J1956; 51701; 51702; 51703; 73070-LT; 80048; 85027; 85610; 85730; 92610-GN; 93010; 97116-GP; 97162-GP; 97165-GO; 97530-GO; 97530-GP; 99284; A9270-GY; J0696; J1650; J7050

== ENCOUNTER 2019-05-28 09:33 | Emergency (ER) | payer MEDICARE ==
[2019-05-28] MEDS ORDERED: HYDROmorphone 1 MG/ML Syringe IM ONE ×2 (09:43→10:23)
[2019-05-28] MEDS ORDERED: Ondansetron 4 MG Tab.DIS PO ONE (09:43)
[2019-05-28 09:46] VITALS: BP 143/78; PULSE 60
--- NOTE | 2019-05-28 10:19 | EDM.PDOC ---
ED HPI GENERAL MEDICAL PROBLEM - General Chief Complaint: Genitourinary Problem Time Seen by Provider: 05/28/19 10:15 Source of Information: Reports: Patient, Old Records, RN, RN Notes Reviewed History Limitations: Reports: No Limitations - History of Present Illness INITIAL COMMENTS - FREE TEXT/NARRATIVE: Pt sent from retirement with report that a staff member accidentally stepped on his antonio catheter and pulled it completely out with the balloon inflated. They left the antonio out over night to see if he could pass urine and he could not. The retirement made several attempts to place a new catheter this morning and could not get into the bladder. They reported a good amt. of blood and clots, but no urine, and no success at placing a antonio. The pt states it was very painful when they tried to put a new antonio. Currently the pt rates his pain 12/31. Onset: Sudden Onset Date: 05/27/19 Duration: Constant Location: Reports: Pelvis Quality: Reports: Ache, Pressure Severity: Severe Improves with: Reports: None Associated Symptoms: Reports: No Other Symptoms Bladder Pain Score (Numeric/FACES): 6 - Related Data Allergies Allergy/AdvReac Type Severity Reaction Status Date / Time amoxicillin Allergy Cannot Verified 05/28/19 09:52 Remember azithromycin [From Zithromax] Allergy Cannot Verified 05/28/19 09:52 Remember Histamine H2 Inhibitors Allergy Cannot Verified 05/28/19 09:52 Remember methylprednisolone Allergy Cannot Verified 05/28/19 09:52 Remember Sulfa (Sulfonamide Allergy Cannot Verified 05/28/19 09:52 Antibiotics) Remember sulfamethoxazole Allergy Cannot Verified 05/28/19 09:52 [From Bactrim] Remember trimethoprim [From Bactrim] Allergy Cannot Verified 05/28/19 09:52 Remember Home Meds: Home Meds ALPRAZolam [Xanax] 1 mg PO BID PRN 09/21/18 [History] Albuterol Sulfate [Proair Hfa] 2 puff INH Q6H PRN 09/21/18 [History] Aspirin 81 mg PO DAILY 09/21/18 [History] Bisacodyl 10 mg PO DAILY PRN 09/21/18 [History] Clopidogrel [Plavix] 75 mg PO DAILY 09/21/18 [History] Fish Oil/[place]-3 Fatty Acids [Fish Oil] 1,000 mg PO DAILY 09/21/18 [History] Magnesium Hydroxide [Milk of Magnesia] 400 mg PO DAILY PRN 09/21/18 [History] Multivitamin [Multivitamins] 1 cap PO DAILY 09/21/18 [History] Pantoprazole Sodium [Protonix] 40 mg PO DAILY 09/21/18 [History] Tamsulosin [Flomax] 0.4 mg PO DAILY 09/21/18 [History] Vitamin B Complex 1 cap PO DAILY 09/21/18 [History] Ascorbic Acid [Vitamin C] 500 mg PO DAILY 01/20/19 [History] Bisacodyl [Dulcolax] 5 mg PO ASDIRECTED PRN 01/20/19 [History] Escitalopram Oxalate 20 mg PO DAILY 01/20/19 [History] Krill/Om-3/DHA/EPA/Phospho/Ast [Krill Oil 1,000 mg Softgel] 1,000 mg PO DAILY [History] Mometasone Furoate [Nasonex [place]] 2 puff NASBOTH DAILY 01/20/19 [History] Sennosides [Ex-Lax Maximum Strength] 25 mg PO DAILY PRN 01/20/19 [History] Sotalol HCl [Sotalol] 120 mg PO BID 01/20/19 [History] amLODIPine [Norvasc] 5 mg PO DAILY #30 tablet 01/24/19 [Rx] levoFLOXacin [Levaquin] 500 mg PO Q24H 7 Days tablet 01/24/19 [Rx] Past Medical History HEENT History: Reports: Sinusitis, Other (See Below) Other HEENT History: recurrent sinus infections, nasal sinus cyst Cardiovascular History: Reports: Afib, Hypertension, Other (See Below) Other Cardiovascular History: hx atrial cardioversion Respiratory History: Reports: None Gastrointestinal History: Reports: Chronic Constipation, GERD Genitourinary History: Reports: BPH, UTI, Recurrent, Other (See Below) Musculoskeletal History: Reports: Other (See Below) Other Musculoskeletal History: toes deformed sideways bilat, started few years ago. Neurological History: Reports: None Psychiatric History: Reports: Anxiety Endocrine/Metabolic History: Reports: None Hematologic History: Reports: None Immunologic History: Reports: None Oncologic (Cancer) History: Reports: None Dermatologic History: Reports: None - Infectious Disease History Infectious Disease History: Reports: Chicken Pox, Measles - Past Surgical History Head Surgeries/Procedures: Reports: None Respiratory Surgical History: Reports: None Male Surgical History: Reports: Prostate Biopsy, Other (See Below) Social & Family History - Family History Family Medical History: Noncontributory Cardiac: Reports: Hypertension, [place] Other Cardiac Family History: father of heart issues Respiratory: Reports: None GI: Reports: None : Reports: None OBGYN: Reports: None Musculoskeletal: Reports: None Neurological: Reports: CVA Other Neurological Family History: brother Psychiatric: Reports: Anxiety Other Psychiatric Family History: mother Endocrine/Metabolic: Reports: Diabetes, type II Other Endocrine/Metabolic Family History: sister is [place] Hematologic: Reports: None Immunologic: Reports: None Dermatologic: Reports: None Oncologic: Reports: None - Tobacco Use Smoking Status *Q: Never Smoker Second Hand Smoke Exposure: No - Caffeine Use Caffeine Use: Reports: None - Recreational Drug Use Recreational Drug Use: No - Living Situation & Occupation Living situation: Reports: Single, Alone, Assisted Living Occupation: Retired ED ROS GENERAL - Review of Systems Review Of Systems: Comprehensive ROS is negative, except as noted in HPI. ED EXAM, RENAL/ - Physical Exam Exam: See Below Exam Limited By: No Limitations General Appearance: Alert, No Apparent Distress, Other (Elderly male) Respiratory/Chest: No Respiratory Distress Cardiovascular: Regular Rate, Rhythm GI/Abdominal: Normal Bowel Sounds, Soft, Pelvis Stable, Tender (suprapubic tenderness). No: Guarding, Rigid, Rebound Neurological: Alert, Oriented Psychiatric: Anxious Skin Exam: Warm, Dry, Intact Course - Vital Signs Last Recorded V/S: Last Vital Signs Temp 98.1 F 05/28/19 09:41 Pulse 60 05/28/19 09:41 Resp 16 05/28/19 09:41 BP 143/78 H 05/28/19 09:41 Pulse Ox 98 05/28/19 09:41 - Orders/Labs/Meds Orders: Active Orders 24 hr Category Date Time Status Bladder Scan [RC] ASDIRECTED Care 05/28/19 09:45 Active Bladder scan: 820cc Meds: Medications Discontinued Medications Generic Name Dose Route Start Last Admin Trade Name Freq PRN Reason Stop Dose Admin Hydromorphone HCl 1 mg 05/28/19 09:43 05/28/19 09:48 Dilaudid IM 05/28/19 09:44 1 mg ONETIME ONE Administration Hydromorphone HCl 1 mg 05/28/19 10:23 Dilaudid IM 05/28/19 10:24 ONETIME ONE Ondansetron HCl 4 mg 05/28/19 09:43 05/28/19 09:49 Zofran Odt PO 05/28/19 09:44 4 mg ONETIME ONE Administration - Re-Assessments/Exams Free Text/Narrative Re-Assessment/Exam: 05/28/19 10:00 I consulted urologist, Dr. Blackmon via [employer]. He agrees to evaluate the pt in [place], preferably in clinic however there is not transportation available to take pt to clinic. Therefore he will go to [facility] ER with Dr. Blackmon accepting. Departure - Departure Time of Disposition: 10:20 Disposition: DC/Tfer to Acute Hospital 02 Condition: Undetermined Clinical Impression: Urinary retention Dislodged Antonio catheter Qualifiers: Encounter type: initial encounter Qualified Code(s): T83.021A - Displacement of indwelling urethral catheter, initial encounter Urethral trauma Qualifiers: Encounter type: initial encounter Qualified Code(s): S37.30XA - Unspecified injury of urethra, initial encounter - Discharge Information *PRESCRIPTION DRUG MONITORING PROGRAM REVIEWED*: Not Applicable *COPY OF PRESCRIPTION DRUG MONITORING REPORT IN PATIENT [place]: Not Applicable Forms: ED Department Discharge, Interfacility Transfer EMTALA Sepsis Event Note - Evaluation Sepsis Screening Result: No Definite Risk - Focused Exam Vital Signs: Vital Signs Temp Pulse Resp BP Pulse Ox 05/28/19 09:41 98.1 F 60 16 143/78 H 98 Date Exam was Performed: 05/28/19 Time Exam was Performed: 10:24 - My Orders Last 24 Hours: My Active Orders 05/28/19 09:45 Bladder Scan [RC] ASDIRECTED - Assessment/Plan Last 24 Hours: My Active Orders 05/28/19 09:45 Bladder Scan [RC] ASDIRECTED
== END 2019-05-28 10:45 ==
LOC: DL.ED 09:33
DX: S37.30XA Unspecified injury of urethra, initial encounter (principal); T83.021A Displacement of indwelling urethral catheter, initial encounter; R33.9 Retention of urine, unspecified; I10 Essential (primary) hypertension; I48.91 Unspecified atrial fibrillation; K21.9 Gastro-esophageal reflux disease without esophagitis; N40.0 Benign prostatic hyperplasia without lower urinary tract symptoms; Z88.0 Allergy status to penicillin; Z88.1 Allergy status to other antibiotic agents; Z88.8 Allergy status to other drugs, medicaments and biological substances; Z88.2 Allergy status to sulfonamides; Z79.01 Long term (current) use of anticoagulants; Z79.899 Other long term (current) drug therapy; X58.XXXA Exposure to other specified factors, initial encounter
CPT/HCPCS: 51798; 96372; 99285; A9270; J1170

== ENCOUNTER 2019-09-03 10:07 | Emergency (ER) | payer MEDICARE, OTHER ==
[2019-09-03] MEDS ORDERED: EPINEPHrine 1:10,000 1 MG/10 ML Syringe IV ONE (10:08)
[2019-09-03] MEDS ORDERED: Sodium Bicarbonate 8.4% 50 MEQ/50 ML SDV IV ONE (10:08)
[2019-09-03 10:22] VITALS: BP 115/65; PULSE 70
[2019-09-03] MEDS ORDERED: Lactated Ringers 1,000 ML IV ONE (10:23)
[2019-09-03] MEDS ORDERED: Sodium Bicarbonate 8.4% 50 MEQ/50 ML SDV ONE (10:36)
[2019-09-03 10:47] LABS: BASE EXCESS ARTERIAL -24 mmol/L ((-2)-(+3)); BICARBONATE,ARTERIAL 8.8 mmol/L (22-26); O2 DELIVERY DEVICE RESUSCITATION BAG; O2 SATURATION ARTERIAL 98 % (95-100); PCO2 ARTERIAL 54 mmHg (35-45); PO2 ARTERIAL 202 mmHg (70-100)
[2019-09-03 10:49] LABS: ANION GAP 23.7 mEq/L (7-13)
[2019-09-03] MEDS ORDERED: cefTRIAXone 1 GM in Sodium Chloride 0.9% 50 ML IV ONE (10:51)
[2019-09-03] MEDS ORDERED: Pantoprazole 40 MG Vial IVPUSH ONE (10:51)
[2019-09-03] MEDS ORDERED: Sodium Bicarbonate 8.4% 50 MEQ/50 ML Syringe IVPUSH ONE (10:51)
[2019-09-03 10:57] LABS: ALLEN TEST PERFORMED
--- NOTE | 2019-09-03 11:16 | EDM.PDOC ---
ED HPI GENERAL MEDICAL PROBLEM - General Chief Complaint: Gastrointestinal Problem Stated Complaint: AMBULANCE Time Seen by Provider: 09/03/19 10:10 Source of Information: Reports: EMS History Limitations: Reports: Other (Unresponsive) - History of Present Illness INITIAL COMMENTS - FREE TEXT/NARRATIVE: This 89 yo male patient was brought to the ED by [facility] due to cardiac arrest. [facility] was initially called for a male patient with a possible GI bleed and a blood pressure of 70 systolic. Upon arrival, EMS noted the patient was in asystole and started CPR. EMS intubated the patient and gave the patient 3 rounds of Epinephrine when they got a return or spontaneous pulse. The patient arrived in the ED with his respirations being supported by BVM. The patient initially had a pulse in the 100's. Lung sounds were clear and equal bilaterally. Pupils were fixed and dilated. As the patient was being assessed the patient's pulse rate dropped into the 60's. The patient then lost spontaneous pulse. CPR was started and the patient was given 2 additional rounds of EPI and 1 amp of Sodium Bicarb. The patient then had a return of spontaneous pulse. Onset: Today Duration: Constant Location: Reports: Other Quality: Reports: Other Severity: Severe Improves with: Reports: None Worsens with: Reports: None Treatments SUPERINTENDENT CONSTRUCTION: Reports: CPR, Intubation, Urinary Catheter in Place - Related Data Allergies Allergy/AdvReac Type Severity Reaction Status Date / Time amoxicillin Allergy Cannot Verified 05/28/19 09:52 Remember azithromycin [From Zithromax] Allergy Cannot Verified 05/28/19 09:52 Remember Histamine H2 Inhibitors Allergy Cannot Verified 05/28/19 09:52 Remember methylprednisolone Allergy Cannot Verified 05/28/19 09:52 Remember Sulfa (Sulfonamide Allergy Cannot Verified 05/28/19 09:52 Antibiotics) Remember sulfamethoxazole Allergy Cannot Verified 05/28/19 09:52 [From Bactrim] Remember trimethoprim [From Bactrim] Allergy Cannot Verified 05/28/19 09:52 Remember Home Meds: Home Meds ALPRAZolam [Xanax] 1 mg PO BID PRN 09/21/18 [History] Albuterol Sulfate [Proair Hfa] 2 puff INH Q6H PRN 09/21/18 [History] Aspirin 81 mg PO DAILY 09/21/18 [History] Clopidogrel [Plavix] 75 mg PO DAILY 09/21/18 [History] Fish Oil/[place]-3 Fatty Acids [Fish Oil] 1,000 mg PO DAILY 09/21/18 [History] Magnesium Hydroxide [Milk of Magnesia] 400 mg PO DAILY PRN 09/21/18 [History] Multivitamin [Multivitamins] 1 cap PO DAILY 09/21/18 [History] Pantoprazole Sodium [Protonix] 40 mg PO DAILY 09/21/18 [History] Tamsulosin [Flomax] 0.4 mg PO DAILY 09/21/18 [History] Vitamin B Complex 1 cap PO DAILY 09/21/18 [History] bisacodyL [Bisacodyl] 10 mg PO DAILY PRN 09/21/18 [History] Ascorbic Acid [Vitamin C] 500 mg PO DAILY 01/20/19 [History] Escitalopram Oxalate 20 mg PO DAILY 01/20/19 [History] Krill/Om-3/DHA/EPA/Phospho/Ast [Krill Oil 1,000 mg Softgel] 1,000 mg PO DAILY [History] Mometasone Furoate [Nasonex [place]] 2 puff NASBOTH DAILY 01/20/19 [History] Sennosides [Ex-Lax Maximum Strength] 25 mg PO DAILY PRN 01/20/19 [History] Sotalol HCl [Sotalol] 120 mg PO BID 01/20/19 [History] bisacodyL [Dulcolax] 5 mg PO ASDIRECTED PRN 01/20/19 [History] amLODIPine [Norvasc] 5 mg PO DAILY #30 tablet 01/24/19 [Rx] levoFLOXacin [Levaquin] 500 mg PO Q24H 7 Days tablet 01/24/19 [Rx] Past Medical History HEENT History: Reports: Sinusitis, Other (See Below) Other HEENT History: recurrent sinus infections, nasal sinus cyst Cardiovascular History: Reports: Afib, Hypertension, Other (See Below) Other Cardiovascular History: hx atrial cardioversion Respiratory History: Reports: None Gastrointestinal History: Reports: Chronic Constipation, GERD Genitourinary History: Reports: BPH, UTI, Recurrent, Other (See Below) Musculoskeletal History: Reports: Other (See Below) Other Musculoskeletal History: toes deformed sideways bilat, started few years ago. Neurological History: Reports: None Psychiatric History: Reports: Anxiety Endocrine/Metabolic History: Reports: None Hematologic History: Reports: None Immunologic History: Reports: None Oncologic (Cancer) History: Reports: None Dermatologic History: Reports: None - Infectious Disease History Infectious Disease History: Reports: Chicken Pox, Measles - Past Surgical History Head Surgeries/Procedures: Reports: None Respiratory Surgical History: Reports: None Male Surgical History: Reports: Prostate Biopsy, Other (See Below) Social & Family History - Family History Family Medical History: Noncontributory Cardiac: Reports: Hypertension, [place] Other Cardiac Family History: father of heart issues Respiratory: Reports: None GI: Reports: None : Reports: None OBGYN: Reports: None Musculoskeletal: Reports: None Neurological: Reports: CVA Other Neurological Family History: brother Psychiatric: Reports: Anxiety Other Psychiatric Family History: mother Endocrine/Metabolic: Reports: Diabetes, type II Other Endocrine/Metabolic Family History: sister is [place] Hematologic: Reports: None Immunologic: Reports: None Dermatologic: Reports: None Oncologic: Reports: None - Tobacco Use Smoking Status *Q: Unknown Ever Smoked - Caffeine Use Caffeine Use: Reports: None - Living Situation & Occupation Living situation: Reports: Single, Alone, Assisted Living Occupation: Retired ED ROS GENERAL - Review of Systems Review Of Systems: Unable To Obtain Reason Not Obtained: CPR in progress with BVM vent support ED EXAM, GENERAL - Physical Exam Exam: See Below Exam Limited By: Other General Appearance: Severe Distress Eye Exam: Bilateral Eye: Other (Pupils were fixed and dialated to a 5) Ears: Normal External Exam, Normal Canal, Hearing Grossly Normal, Normal TMs Nose: Normal Inspection, Normal Mucosa, No Blood Throat/Mouth: Other (The patient was intubated) Head: Atraumatic, Normocephalic Neck: Normal Inspection Respiratory/Chest: Other (The patient's respirations were suppored by BVM with clear and equal lung sounds) Cardiovascular: Bradycardia GI/Abdominal: Other (Distended and firm) Rectal (Males) Exam: Decreased Rectal Tone, Heme + Stool Extremities: Normal Inspection, Normal Range of Motion, Non-Tender, Normal Capillary Refill, No Pedal Edema Neurological: Unresponsive Skin Exam: Dry, Intact, Normal Color, No Rash, Cool Lymphatic: No Adenopathy Course - Vital Signs Last Recorded V/S: Last Vital Signs Temp 36.2 C 09/03/19 10:19 Pulse 70 09/03/19 10:19 Resp 12 09/03/19 10:19 BP 115/65 09/03/19 10:19 Pulse Ox 45 L 09/03/19 10:19 - Orders/Labs/Meds Orders: Active Orders 24 hr Category Date Time Status EKG Documentation Completion [RC] STAT Care 09/03/19 10:08 Active CULTURE BLOOD [BC] Stat Lab 09/03/19 10:17 Results INR,PT,PROTHROMBIN TIME [COAG] Stat Lab 09/03/19 10:17 Received Lactated Ringers [Ringers, Lactated] 1,000 ml Med 09/03/19 10:23 Active IV .BOLUS cefTRIAXone [Rocephin] 1 gm Med 09/03/19 10:51 Active Sodium Chloride 0.9% [Normal Saline] 50 ml IV ONETIME Medication Orders Lactated Ringer's (Ringers, Lactated) 1,000 mls @ 999 mls/hr IV .BOLUS ONE Stop: 09/03/19 11:23 Last Admin: 09/03/19 10:23 Dose: 999 mls/hr Ceftriaxone Sodium 1 gm/ (Sodium Chloride) 50 mls @ 100 mls/hr IV ONETIME ONE Stop: 09/03/19 11:20 Last Admin: 09/03/19 11:01 Dose: 100 mls/hr Labs: Laboratory Tests 09/03/19 09/03/19 09/03/19 Range/Units 10:17 10:17 10:17 WBC 34.1 H* (5.0-10.0) 10^3/uL RBC 3.07 L (4.6-6.2) 10^6/uL Hgb 11.0 L (14.0-18.0) g/dL Hct 33.0 L (40.0-54.0) % MCV 107.5 H D (80-100) fL MCH 35.8 H (27.0-34.0) pg MCHC 33.3 (33.0-35.0) g/dL Plt Count 150 D (150-450) 10^3/uL Neut % (Auto) 71.3 (42.2-75.2) % Lymph % (Auto) 22.3 (20.5-50.1) % [place] % (Auto) 6.3 (2-8) % Eos % (Auto) 0.0 L (1.0-3.0) % Baso % (Auto) 0.1 (0.0-1.0) % Add Manual Diff Yes Neutrophils % (Manual) 64 (42-75) % Band Neutrophils % 6 % Lymphocytes % (Manual) 18 L (20-50) % Monocytes % (Manual) 10 H (2-8) % Metamyelocytes % 2 Nucleated RBCs 2 /100WBC ABG pH (7.35-7.45) ABG pCO2 (35-45) mmHg ABG pO2 (70-100) mmHg ABG HCO3 (22-26) mmol/L ABG O2 Saturation (95-100) % ABG Base Excess ((-2)-(+3)) mmol/L Enzo Test O2 Delivery Device Sodium 137 (136-145) mmol/L Potassium 4.7 (3.5-5.1) mmol/L Chloride 100 (98-107) mmol/L Carbon Dioxide 18 L (21-32) mmol/L Anion Gap 23.7 H (7-13) mEq/L BUN 52 H (7-18) mg/dL Creatinine 3.24 H (0.70-1.30) mg/dL Est Cr Clr Drug Dosing 18.15 mL/min Estimated GFR (MDRD) 18 BUN/Creatinine Ratio 16.0 (No establ ref range) Glucose 110 H (74-99) mg/dL Lactic Acid 11.7 H* (0.4-2.0) mmol/L Calcium 8.6 (8.5-10.1) mg/dL Total Bilirubin 1.3 H (0.2-1.0) mg/dL AST 80 H (15-37) U/L ALT 57 (16-63) U/L Alkaline Phosphatase 86 (46-116) U/L Troponin I 0.038 (0.000-0.056) ng/mL Total Protein 6.2 L (6.4-8.2) g/dL Albumin 2.1 L (3.4-5.0) g/dL Globulin 4.1 Albumin/Globulin Ratio 0.51 SARS-CoV-2 RNA (RT-PCR) (NEGATIVE) 09/03/19 09/03/19 Range/Units 10:25 10:40 WBC (5.0-10.0) 10^3/uL RBC (4.6-6.2) 10^6/uL Hgb (14.0-18.0) g/dL Hct (40.0-54.0) % MCV (80-100) fL MCH (27.0-34.0) pg MCHC (33.0-35.0) g/dL Plt Count (150-450) 10^3/uL Neut % (Auto) (42.2-75.2) % Lymph % (Auto) (20.5-50.1) % [place] % (Auto) (2-8) % Eos % (Auto) (1.0-3.0) % Baso % (Auto) (0.0-1.0) % Add Manual Diff Neutrophils % (Manual) (42-75) % Band Neutrophils % % Lymphocytes % (Manual) (20-50) % Monocytes % (Manual) (2-8) % Metamyelocytes % Nucleated RBCs /100WBC ABG pH 6.85 L* (7.35-7.45) ABG pCO2 54 H (35-45) mmHg ABG pO2 202 H (70-100) mmHg ABG HCO3 8.8 L (22-26) mmol/L ABG O2 Saturation 98 (95-100) % ABG Base Excess -24 L ((-2)-(+3)) mmol/L Enzo Test Performed O2 Delivery Device Resuscitation bag Sodium (136-145) mmol/L Potassium (3.5-5.1) mmol/L Chloride (98-107) mmol/L Carbon Dioxide (21-32) mmol/L Anion Gap (7-13) mEq/L BUN (7-18) mg/dL Creatinine (0.70-1.30) mg/dL Est Cr Clr Drug Dosing mL/min Estimated GFR (MDRD) BUN/Creatinine Ratio (No establ ref range) Glucose (74-99) mg/dL Lactic Acid (0.4-2.0) mmol/L Calcium (8.5-10.1) mg/dL Total Bilirubin (0.2-1.0) mg/dL AST (15-37) U/L ALT (16-63) U/L Alkaline Phosphatase (46-116) U/L Troponin I (0.000-0.056) ng/mL Total Protein (6.4-8.2) g/dL Albumin (3.4-5.0) g/dL Globulin Albumin/Globulin Ratio SARS-CoV-2 RNA (RT-PCR) Negative (NEGATIVE) Meds: Medications Generic Name Dose Route Start Last Admin Trade Name Freq PRN Reason Stop Dose Admin Lactated Ringer's 1,000 mls @ 999 mls/hr 09/03/19 10:23 09/03/19 10:23 Ringers, Lactated IV 09/03/19 11:23 999 mls/hr .BOLUS ONE Administration Ceftriaxone Sodium 1 gm/ 50 mls @ 100 mls/hr 09/03/19 10:51 09/03/19 11:01 Sodium Chloride IV 09/03/19 11:20 100 mls/hr ONETIME ONE Administration Discontinued Medications Generic Name Dose Route Start Last Admin Trade Name Freq PRN Reason Stop Dose Admin Pantoprazole Sodium 40 mg 09/03/19 10:51 09/03/19 11:05 Protonix Iv IVPUSH 09/03/19 10:52 40 mg ONETIME ONE Administration Sodium Bicarbonate Confirm 09/03/19 10:35 09/03/19 10:38 Sodium Bicarbonate 4.2% Administered 09/03/19 10:36 5 meq Dose Administration 5 meq .ROUTE .STK-MED ONE Sodium Bicarbonate Confirm 09/03/19 10:36 Sodium Bicarbonate 8.4% Administered 09/03/19 10:37 Dose 50 meq .ROUTE .STK-MED ONE Sodium Bicarbonate 50 meq 09/03/19 10:51 Sodium Bicarbonate 8.4% IVPUSH 09/03/19 10:52 ONETIME ONE Departure - Departure Time of Disposition: 11:18 Disposition: DC/Tfer to Acute Hospital 02 Reason for Transfer *Q: Other Condition: Critical Clinical Impression: Cardiac arrest GI bleed Qualifiers: GI bleed type/associated pathology: unspecified gastrointestinal hemorrhage type Qualified Code(s): K92.2 - Gastrointestinal hemorrhage, unspecified Leukocytosis Qualifiers: Leukocytosis type: unspecified Qualified Code(s): D72.829 - Elevated white blood cell count, unspecified Forms: Interfacility Transfer EMTALA Care Plan Goals: Discussed the history, examination, lab results, EKG results and treatment history with Dr. Sewell. Dr. Sewell accepted the patient for continued evaluation and further management at in [facility]. The patient will be transported by [facility] Sepsis Event Note - Evaluation Sepsis Screening Result: No Definite Risk - Focused Exam Vital Signs: Vital Signs Temp Pulse Resp BP Pulse Ox 09/03/19 10:19 36.2 C 70 12 115/65 45 L Date Exam was Performed: 09/03/19 Time Exam was Performed: 11:10 - My Orders Last 24 Hours: My Active Orders 09/03/19 10:08 EKG Documentation Completion [RC] STAT 09/03/19 10:17 CULTURE BLOOD [BC] Stat INR,PT,PROTHROMBIN TIME [COAG] Stat 09/03/19 10:23 Lactated Ringers [Ringers, Lactated] 1,000 ml IV .BOLUS 09/03/19 10:51 cefTRIAXone [Rocephin] 1 gm Sodium Chloride 0.9% [Normal Saline] 50 ml IV ONETIME - Assessment/Plan Last 24 Hours: My Active Orders 09/03/19 10:08 EKG Documentation Completion [RC] STAT 09/03/19 10:17 CULTURE BLOOD [BC] Stat INR,PT,PROTHROMBIN TIME [COAG] Stat 09/03/19 10:23 Lactated Ringers [Ringers, Lactated] 1,000 ml IV .BOLUS 09/03/19 10:51 cefTRIAXone [Rocephin] 1 gm Sodium Chloride 0.9% [Normal Saline] 50 ml IV ONETIME
== END 2019-09-03 11:45 ==
LOC: DL.ED 10:07
DX: I46.9 Cardiac arrest, cause unspecified (principal); K92.2 Gastrointestinal hemorrhage, unspecified; D72.829 Elevated white blood cell count, unspecified; K21.9 Gastro-esophageal reflux disease without esophagitis; F41.9 Anxiety disorder, unspecified; Z88.1 Allergy status to other antibiotic agents; Z88.8 Allergy status to other drugs, medicaments and biological substances; Z88.2 Allergy status to sulfonamides; I48.91 Unspecified atrial fibrillation; I10 Essential (primary) hypertension; Z79.82 Long term (current) use of aspirin; Z79.899 Other long term (current) drug therapy; Z79.02 Long term (current) use of antithrombotics/antiplatelets
CPT/HCPCS: 36415; 36600; 71045; 80053; 82272; 82803; 83605; 84484; 85025; 85610; 87040; 87077; 87186; 92950; 93005; 96361; 96365; 96375; 99285; C9113; J0171; J0696; J7050; J7120; U0002